=== PATIENT | female | born 1960 | race Caucasian/White ===

== ENCOUNTER 2025-02-08 09:34 | Emergency (ER) | payer OTHER, SELFPAY ==
--- NOTE | ~2025-02-08 | XR_ITS ---
XR ankle RT min 3V 02/08/2025 10:13 Indication: Ankle swelling after injury Procedure: 4 views right ankle Comparison: No prior studies for comparison. Findings: There are laterally displaced bimalleolar fractures of the ankle with mild lateral angulati on. There is lateral subluxation of the talus with respect to the tibia. Talar dome is unremarkable. Moderate soft tissue swelling. No foreign bodies. There are small degenerative calcaneal enthesophyte s. Impression: 1: Bilateral malleolar fracture with lateral displacement and angulation. Reviewed, dictated and finalized at location A. Impression: 1: Bilateral malleolar fracture with lateral displacement and angulation.
--- OUTSIDE RECORDS SUMMARY | 2025-02-08 09:46 | XMS_ITS | Clinical Summary ---
Author Organization [facility] Address [address] [place] [address] Care Team Providers Care Makeup Sales Advisor Name Role Phone Radha Block Unavailable Unavailable Christy Oconnor [facility] Unavailable Yuliya vailable No, Physician Primary Care Provider [phone] Allergies Active Allergy Reactions Criticality Noted Date Comments Cephalexin Other (See comments) Low 08/09/2019 Po only--caused severe N/V. But IV Ancef Gluten Other (See comments) Low 02/05/2018 Celiac Medications cholecalcifero l (VITAMIN D3) 5,000 unit tablet take tablet by oral route every day 0 0 11/06/19 17 Active levothyroxine (SYNTHROID, LEVOTHROID) 75 mcg tabletIndicati ons:hypothyroi dism Take 1 tablet (75 mcg total) by mouth every morning 0 01/28/20 18 Active ZOLMitriptan (ZOMIG) 5 mg tablet Take 1 tablet (5 mg total) by mouth once as needed for migraine MAY REPEAT DOSE IN 2 HOURS IF NEEDED. DO NOT EXCEED MORE THAN 2 DOSES IN 24 HOURS. 6 tablet 11 04/18/20 24 Active metoprolol tartrate (LOPRESSOR) 50 mg immediate release tablet Take 1 tablet (50 mg total) by mouth 2 (two) times a day 180 tablet 3 11/03/19 25 Active galcanezumab-g nlm (Emgality Pen) 120 mg/mL pen injector Inject 240 mg under the skin every 30 (thirty) days for 30 days, THEN 120 mg every 30 (thirty) days. 2 mL 11 01/31/20 25 025 Active ubrogepant (UBRELVY) 100 mg tablet Take 1 tablet (100 mg total) by mouth once as needed for migraine May repeat dose once in 2 hours if no relief. Do not exceed 2 doses in 24 hours. 30 tablet 2 02/02/20 25 026 Active promethazine (PHENERGAN) 12.5 mg tablet TAKE 1 TABLET BY MOUTH EVERY 6 HOURS NEEDED (NAUSEA/MIGR SANTY) 20 tablet 02/03/20 25 Active atogepant (Qulipta) 30 mg tablet Take 30 mg by mouth daily 30 tablet 11 11/07/19 25 025 Discontinued promethazine (PHENERGAN) 12.5 mg tablet TAKE 1 TABLET BY MOUTH EVERY 6 HOURS NEEDED (NAUSEA/MIGR SANTY) 20 tablet 12/31/19 25 025 Discontinued ubrogepant (UBRELVY) 100 mg tablet Take 1 tablet (100 mg total) by mouth once as needed for migraine May repeat dose once in 2 hours if no relief. Do not exceed 2 doses in 24 hours. 10 tablet 01/31/20 25 025 Discontinued(Re order) Hospital, Clinic, or Other Facility Administered Medication Ordered Dose Route Frequency Start Date End Date Status onabotulinumtoxin A (BOTOX) 200 unit injection 200 UnitsIndications:Int ractable chronic migraine without aura and without status migrainosus 200 Units OTHER Once for Clinic-Administer ed Medication 04/24/2025 Active onabotulinumtoxin A (BOTOX) 200 unit injection 200 UnitsIndications:Int ractable chronic migraine without aura and without status migrainosus 200 Units IM Once 01/30/2025 01/30/2025 Ended Active Problems Problem Noted Date Diagnosed Date Arthritis of carpometacarpal (CMC) joint of left thumb 11/28/2021 Overview (11/28/2021): Added automatically from request for surgery [id number] Hallux rigidus of right foot 07/27/2019 Overview (07/27/2019): Added automatically from request for surgery [id number] Arthritis of finger of right hand 01/25/2019 Overview (01/25/2019): Added automatically from request for surgery [id number] Osteoarthritis 03/24/2017 Celiac disease 11/06/2016 Overview (01/02/2017): Celiac disease 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 [place] [address] Batsheva Santana PA Ubrelvaleisha BUENO 01/31/2025 Orders Only [facility] General Neurology [address] [place] [phone] Annette Mckinney Intractable chronic migraine without aura and without status migrainosus (Primary Dx) 01/30/2025 1:30 PM CDT Procedure visit [facility] General Neurology [address] [place] [address] Batsheva Santana PA Intractable chronic migraine without aura and without status migrainosus (Primary Dx) 01/30/2025 Telephone [facility] General Neurology [address] [place] [phone] Batsheva Santana PA Emgality PA from Last 3 Months Immunizations Immunization Administration Dates Next Due Pneumococcal Conjugate PCV 13 05/14/2018 Surgical History Surgery Date Site/Laterality Comments HAND SURGERY 01/2011 & 01/2019 Left left--01/2011 right--01/2019 right hand--> silastic arthrex implant right middle finger INCISION AND DRAINAGE 09/28/2010 - 09/27/2011 Left long finger--treated as osteomylitis prophalactically ROTATOR CUFF REPAIR 06/28/2016 - 07/28/2016 Right FINGER SURGERY 01/26/2011 - 02/25/2011 Bilateral right index finger arthrodesis/synovectomy PIP JOINT FUSION 01/26/2019 - 02/25/2019 Right middle finger Medical History Medical History Date Comments Migraine well controlled with meds. Last migraine-->4-6 weeks ago. Usually has 1/month Seasonal allergies well controll ed with meds Hypothyroidism well controlled with meds Celiac disease 2011 usually manifest s on skin not GI Erosive (osteo)arthritis hands & feet Family History Medical History Relation Name Comments Migraines Maternal Grandmother Family history of migraine headaches - (Added by TW Conv) Stroke Paternal Grandmother Family history of cerebrovascular accident (CVA) - (Added by TW Conv) Ulcerative colitis Son 1 Ulcerativ e colitis; Migraines Son 2 Family history of migraine headaches - (Added by TW Conv) Anesthesia problems Neg Hx Relation Name Status Comments Maternal Grandmother Paternal Grandmother Son 1 Son 2 Social History Tobacco Use Types Packs/Day Years Used Date Smoking Tobacco: Never Smokeless Tobacco: Never Tobacco Cessation:Counseling Given: Not Answered Alcohol Use Standard Drinks/Week Comments No 0 (1 standard drink = 0.6 oz pur e alcohol) AUDIT-C Answer Date Recorded Q1: How often do you have a drink containing alc ohol? Never 12/25/2021 Average Number of Drinks Not on file 022 Frequency of Binge Drinking Not on file 11/28 Comments No Sex and Gender Information Value Date Recorded Sex Assigned at Not on file Legal Sex Female 4:22 AM COMPLIANCE TESTER Gender Identity Female 08/15/2019 6:33 PM COMPLIANCE TESTER Sexual Orientation Straight 01/26/2021 4: 17 PM CDT Occupation Industry Job Start Date Job End Date denied Not on file Not on file Not on file Obstetrics History Last Filed Vital Signs Vital Sign Reading Time Taken Comments Blood Pressure 129/83 01/30/2025 1:08 PM CDT Pulse 62 01/30/2025 1:08 PM CDT Temperature 36.5 C (97.7 F) 01/30/2025 1:08 PM CDT Respiratory Rate 13 12/25/2021 1:40 PM CDT Oxygen Saturation 97% 01/30/2025 1:08 PM CDT Inhaled Oxygen Concentration - - Weight 73.7 kg (162 lb 8 oz) 01/30/2025 1:08 PM CDT Height 165.1 cm (5' 5 ) 11/07/2024 2:36 PM COMPLIANCE TESTER Body Mass Index 27.04 11/07/2024 2:36 PM COMPLIANCE TESTER Plan of Treatment Health Maintenance Due Date Last Done Comments Colon Cancer Screening-Colonoscopy 1960 Depression Screening 1960 Osteoporosis Screening-Bone Density Scan 1960 Hepatitis B Screening 01/17/1976 Breast Cancer Screening-Mammogram 04/02/2018 017 Pneumococcal vaccine 65+ (2 of 2 - PPSV23) 05/14/2019 05/14/2018 Fall Risk Assessment 12/25/2022 12/25/2021 Well Visit 65+ 2023 DTaP/Tdap/Td Vaccine (2 - Td or Tdap) 03/09/2024 03/09/2014 Covid-19 Vaccine (4 - 2023-2 5 season) 2024 10/08/2021, 01/17/2021, 12/24/2020 Influenza Vaccine (Season Ended) 2025 06/19/2021, 06/29/2020, 07/20/2019, Additional history exists Hepatitis C Screening Completed 09/03/2018 Zoster Vaccine Completed 02/08/2019, 11/04/2018 Medical Devices Implanted Type Area Stained Glass Painter Device Identifier Shelf Expiration Date Model / Serial / Lot Small Bone Innovations Pip-20 Biocompatible Interphalangeal Proximal 20 Joint Finger Silastic - [id number] Implanted:Qty: 1 on 02/16/2019 by Guille Paz MD at [facility] Other - see comments Right: Middle Finger [employer] 05/28/2023 PIP-20 / / [id number] Description:Silicone PIP Pro ximal Interphalngeal implant [employer] Ar-1318ft Corkscrew Fiberwire 2.2mm 4mm 17.9mm 2 Needle Wire Foot Ankle 2-0 - Sna - [id number] Implanted:Qty: 1 on 12/25/2021 by Guille Paz MD at [facility] Other - see comments Left: Wrist [employer] [id number] 03/27/2026 AR-1318F T / NA / [id number] Description:Suture anchor [employer] Ar-1318ft Corkscrew Fiberwire 2.2mm 4mm 17.9mm 2 Needle Wire Foot Ankle 2-0 - Sna - [id number] Implanted:Qty: 1 on 12/25/2021 by Guille Paz MD at [facility] Other - see comments Left: Wrist [employer] [id number] 05/28/2025 AR-1318F T / NA / Description:Suture anchor [employer] [id number] Arthroflex [id number] Allograft Thk2.5-3.5mm Graft Soft Tissue - [id number] - [id number] Implanted:Qty: 1 on 08/11/2019 by George Lopez MD at [facility] Right: Foot [employer] 01/29/2022 [id number] / [id number] / [id number] Procedures Procedure Name Priority Date/Time Associated Diagnosis Comments HEPATITIS C ANTIBODY Routine 09/03/2018 1:33 PM COMPLIANCE TESTER Psoriatic arthritis (HCC) High risk medication use MAMMOGRAPHY, TOMOGRAPHY, BILATERAL Routine 04/02/2017 1:50 PM CDT from Last 3 Months or Most Recently Relevant to Health Maintenance Results * Hepatitis C antibody (09/03/2018 1:33 PM COMPLIANCE TESTER) Hep C Ab NON-REACTI VE NON-REACTI VE [facility] [place] SIGNAL TO CUT-OFF 0.01 <1.00 [facility] [place] Blood specimen (specimen) 09/03/2018 1:33 PM COMPLIANCE TESTER 09/03/2018 1:34 PM COMPLIANCE TESTER Narrative [facility] - 09/06/2018 2:45 PM COMPLIANCE TESTER FASTING:NO FASTING: NO Resulting Agency Comment Performing Organization Information: Site ID: [id number] Name: [facility] Address: [address] [address] Director: Alex Bojorquez D.O., MPH us Rell Aguilar MD PhD LAB MICROBIOLOGY - GENER AL ORDERABLES Final Result [facility] - [facility] * MAMMOGRAPHY, TOMOGRAPHY, BILATERAL (04/02/2017 1:50 PM CDT) Anatomical Region Laterality Modality Bilateral Mammography 04/02/2017 1:50 PM CDT Narrative 04/02/2017 1:50 PM CDT Daina RAMOS M.D. FINAL REPORT The radiology attending physician has personally reviewed this study, and has reviewed and/or edited this written report and agrees with it. ACC# Date Time Exam [id number] Apr 02, 2017 08:50:00 [facility] [address] Diag Mamm, inc CAD, bilat Technologist(s): Jamee Sabillon; ; [id number] Apr 02, 2017 08:50:00 [facility] [address] Dig Breast Mayur Thomas Technologist(s): Jamee Sabillon; ; [id number] Apr 02, 2017 09:17:00 [facility] [id number] Axillary Breast Ultrasound R ACC# Date Time Exam [id number] Apr 02, 2017 08:50:00 [facility] [address] Diag Mamm, inc CAD, bilat Technologist(s): Jamee Sabillon; ; [id number] Apr 02, 2017 08:50:00 [facility] [address] Dig Breast Mayur Thomas Technologist(s): Jamee Sabillon; ; [id number] Apr 02, 2017 09:17:00 [facility] [address] Axillary Breast Ultrasound R EXAMINATION: BILATERAL FULL FIELD DIGITAL DIAGNOSTIC MAMMOGRAM WITH CAD AND DIGITAL BREAST TOMOSYNTHESIS; RIGHT AXILLARY SONOGRAM HISTORY: 57-year-old woman with recent abnormal screening mammogram at [facility] on 03/18/2017. The patient also reports right axillary thickening for approximately 3 years. TECHNIQUE: Full field digital craniocaudal and mediolateral oblique views of the breast(s) were obtained. Computer Aided Detection was performed. Digital breast tomosynthesis was performed. COMPARISON: 03/18/2017, 02/14/2015, 01/11/2014, 04/25/2010. BREAST PARENCHYMAL COMPOSITION: The breasts are heterogeneously dense, which may obscure small masses. MAMMOGRAM FINDINGS: No suspicious abnormality is confirmed in the area of concern on recent screening mammogram. No new suspicious abnormality is seen within either breast on mammogram. RIGHT AXILLA SONOGRAM: Targeted sonogram of the right axilla was performed. There is no suspicious sonographic finding in the area of palpable concern in the right axilla. Normal right axillary lymph nodes are visualized. IMPRESSION: 1. No suspicious sonographic finding in the area of clinical concern in the right axilla. OVERALL FINAL ASSESSMENT: BI-RADS Category 1: Negative. Requested By: Judy Barakat M.D. Dictated By: MARGARITA CHAVEZ M.D. on Apr 02 2017 9:26A This document has been electronically signed by: ANYA BAIRD M.D. on Apr 02 2017 9:37A [id number] RAMOS M.D. FINAL REPORT The radiology attending physician has personally reviewed this study, and has reviewed and/or edited this written report and agrees with it. Attending: JUDY BARAKAT Requesting: Judy Barakat Requesting Fax: Attending Fax: Attending ID: [id number] Requesting ID: [id number] Report To 1 ID: [id number] Report To 1 Name: , Report To 1 FAX: NextGen Order #: Procedure Note Miscellaneous, Not In File - 07/18/2017 Daina RAMOS M.D. FINAL REPORT The radiology attending physician has personally reviewed this study, and has reviewed and/or edited this written report and agrees with it. ACC# Date Time Exam [id number] Apr 02, 2017 08:50:00 [facility] [id number] Diag Mamm, inc CAD, bilat Technologist(s): Jamee Sabillon; ; [id number] Apr 02, 2017 08:50:00 [facility] [address] Dig Breast Mayur Thomas Technologist(s): Jamee Sabillon; ; [id number] Apr 02, 2017 09:17:00 [facility] [address] Axillary Breast Ultrasound R ACC# Date Time Exam [id number] Apr 02, 2017 08:50:00 [facility] [address] Diag Mamm, inc CAD, bilat Technologist(s): Jamee Sabillon; ; [id number] Apr 02, 2017 08:50:00 [facility] [address] Dig Breast Mayur Thomas Technologist(s): Jamee Sabillon; ; [id number] Apr 02, 2017 09:17:00 [facility] [address] Axillary Breast Ultrasound R EXAMINATION: BILATERAL FULL FIELD DIGITAL DIAGNOSTIC MAMMOGRAM WITH CAD AND DIGITAL BREAST TOMOSYNTHESIS; RIGHT AXILLARY SONOGRAM HISTORY: 57-year-old woman with recent abnormal screening mammogram at [facility] on 03/18/2017. The patient also reports right axillary thickening for approximately 3 years. TECHNIQUE: Full field digital craniocaudal and mediolateral oblique views of the breast(s) were obtained. Computer Aided Detection was performed. Digital breast tomosynthesis was performed. COMPARISON: 03/18/2017, 02/14/2015, 01/11/2014, 04/25/2010. BREAST PARENCHYMAL COMPOSITION: The breasts are heterogeneously dense, which may obscure small masses. MAMMOGRAM FINDINGS: No suspicious abnormality is confirmed in the area of concern on recent screening mammogram. No new suspicious abnormality is seen within either breast on mammogram. RIGHT AXILLA SONOGRAM: Targeted sonogram of the right axilla was performed. There is no suspicious sonographic finding in the area of palpable concern in the right axilla. Normal right axillary lymph nodes are visualized. IMPRESSION: 1. No suspicious sonographic finding in the area of clinical concern in the right axilla. OVERALL FINAL ASSESSMENT: BI-RADS Category 1: Negative. Requested By: Judy Barakat M.D. Dictated By: MARGARITA CHAVEZ M.D. on Apr 02 2017 9:26A This document has been electronically signed by: ANYA BAIRD M.D. on Apr 02 2017 9:37A [id number] RAMOS M.D. FINAL REPORT The radiology attending physician has personally reviewed this study, and has reviewed and/or edited this written report and agrees with it. Attending: JUDY BARAKAT Requesting: Judy Barakat Requesting Fax: Attending Fax: Attending ID: [id number] Requesting ID: [id number] Report To 1 ID: [id number] Report To 1 Name: , Report To 1 FAX: NextGen Order #: [id number] Judy Barakat MD IMG MAMMO PROCEDURES Edit ed Result - Final from Last 3 Months or Most Recently Relevant to Health Maintenance Insurance [facility] CHOICE PLUS [facility] ADVANTAGE CHOICE PPO * Guarantor: [facility] Account Type Relation to Patient Date of Phone Billing Address Research Care Teams Makeup Sales Advisor Relationship Specialty Start Date End Date No, Physician PCP - General 04/22/22 Radha Block Occupational Therapist Occupational Therapy 03/02/18 Christy Oconnor, operations supervisor 2nd shift 05/27/18
--- OUTSIDE RECORDS SUMMARY | 2025-02-08 09:46 | XMS_ITS | Referral Summary ---
Author Organization [facility] Address [address] [place] [address] Care Team Providers Care Seed Production Field Supervisor Name Role Phone Radha Block Unavailable Unavailable Christy Oconnor [facility] Unavailable Yuliya vailable No, Physician Primary Care Provider [phone] Encounters Date Type Department Care Team Description 02/01/2025 Telephone [facility] General Neurology [address] [place] [address] Batsheva Santana PA Ubrelvy PA 01/31/2025 Orders Only [facility] General Neurology [address] [place] [address] Annette Mckinney Intractable chronic migraine without aura and without status migrainosus (Primary Dx) 01/30/2025 Telephone [facility] General Neurology [address] [place] [address] Batsheva Santana PA Emgality PA 01/30/2025 1:30 PM CDT Procedure visit [facility] General Neurology [address] [place] [address] Batsheva Santana PA Intractable chronic migraine without aura and without status migrainosus (Primary Dx) from Last 3 Months Allergies Active Allergy Reactions Criticality Noted Date [...] mg every 30 (thirty) days. 2 mL 01/31/20 25 025 Active ubrogepant (UBRELVY) 100 [...] (11/28/2021): Added automatically from request for surgery [id number] Hallux rigidus of right foot 07/27/2019 Overview (07/27/2019): Added automatically from request for surgery [id number] Arthritis of finger of right hand 01/25/2019 Overview (01/25/2019): Added automatically from request for surgery [id number] Osteoarthritis 03/24/2017 Celiac disease 11/06/2016 Overview (01/02/2017): Celiac disease Dermatitis herpetiformis 11/06/2016 Overview (01/02/2017): Dermatitis herpetiformis Intractable chronic migraine without aura and without status migrainosus 11/06/2016 Overview (01/02/2017): Migraines Hypothyroidism 11/06/2016 Overview (01/02/2017): Hypothyroidism Resolved Problems Problem Noted Date Diagnosed Date Resolved Date High risk medication use 05/13/201812/2021 Psoriatic arthritis 02/05/2018 08/02/20 19 Immunizations Immunization Administration Dates Next Due Pneumococcal Conjugate PCV 13 05/14/2018 Social History Tobacco Use Types Packs/Day Years [...] on file Legal Sex Female 4:22 AM VICE PRESIDENT OF CUSTOMER SERVICE Gender Identity Female 08/15/2019 6:33 PM VICE PRESIDENT OF CUSTOMER SERVICE Sexual Orientation Straight 01/26/2021 4: 17 PM CDT Occupation Industry Job Start Date Job End Date denied Not on file Not on file Not on file Last Filed Vital Signs Vital Sign Reading [...] cm (5' 5 ) 11/07/2024 2:36 PM VICE PRESIDENT OF CUSTOMER SERVICE Body Mass Index 27.04 11/07/2024 2:36 PM VICE PRESIDENT OF CUSTOMER SERVICE Plan of Treatment Not on file Medical Devices Implanted Type Area Escrow Processor Device Identifier Shelf Expiration Date Model / Serial / Lot Small Bone Innovations Pip-20 Biocompatible Interphalangeal Proximal 20 Joint Finger Silastic - [id number] Implanted:Qty: 1 on 02/16/2019 by Guille Paz MD at [facility] Other - see comments Right: Middle Finger [employer] 05/28/2023 PIP-20 / / [id number] Description:Silicone PIP Pro ximal Interphalngeal implant [employer] Ar-1318ft Corkscrew Fiberwire 2.2mm 4mm 17.9mm 2 Needle Wire Foot Ankle 2-0 - Sna - [id number] Implanted:Qty: 1 on 12/25/2021 by Guille Paz MD at [facility] Other - see comments Left: Wrist [employer] [id number] 03/27/2026 AR-1318F T / NA / [id number] Description:Suture anchor [employer] Ar-1318ft Corkscrew Fiberwire 2.2mm 4mm 17.9mm 2 Needle Wire Foot Ankle 2-0 - Sna - [id number] Implanted:Qty: 1 on 12/25/2021 by Guille Paz MD at [facility] Other - see comments Left: Wrist [employer] [id number] 05/28/2025 AR-1318F T / NA / Description:Suture anchor Lif[employer]et [id number] Arthroflex [id number] Allograft Thk2.5-3.5mm Graft Soft Tissue - [id number] - [id number] Implanted:Qty: 1 on 08/11/2019 by George Lopez MD at [facility] Right: Foot [employer]et 01/29/2022 [id number] / [id number] / [id number] Procedures Procedure Name Priority Date/Time Associated Diagnosis Comments HEPATITIS C ANTIBODY Routine 09/03/2018 1:33 PM VICE PRESIDENT OF CUSTOMER SERVICE Psoriatic arthritis (HCC) High risk medication use MAMMOGRAPHY, TOMOGRAPHY, BILATERAL Routine 04/02/2017 1:50 PM CDT from Last 3 Months or Most Recently Relevant to Health Maintenance Results * Hepatitis C antibody (09/03/2018 1:33 PM VICE PRESIDENT OF CUSTOMER SERVICE) Hep C Ab NON-REACTI VE NON-REACTI VE [facility] [place] SIGNAL TO CUT-OFF 0.01 <1.00 [facility] [place] Blood specimen (specimen) 09/03/2018 1:33 PM VICE PRESIDENT OF CUSTOMER SERVICE 09/03/2018 1:34 PM VICE PRESIDENT OF CUSTOMER SERVICE Narrative [facility] - 09/06/2018 2:45 PM VICE PRESIDENT OF CUSTOMER SERVICE FASTING:NO FASTING: NO Resulting Agency Comment Performing Organization Information: Site ID: [place] Name: Brittnee Hernandez Address: [address] [address] Director: Alex Bojorquez D.O., MPH us Rell Aguilar MD PhD LAB MICROBIOLOGY - GENER AL ORDERABLES Final Result [facility] - [place] * MAMMOGRAPHY, TOMOGRAPHY, BILATERAL (04/02/2017 1:50 PM CDT) Anatomical Region Laterality Modality Bilateral Mammography 04/02/2017 1:50 PM CDT Narrative 04/02/2017 1:50 PM CDT ANYA BAIRD M.D. MARGARITA CHAVEZ M.D. FINAL REPORT The radiology attending physician has personally reviewed this study, and has reviewed and/or edited this written report and agrees with it. ACC# Date Time Exam [id number] Apr 02, 2017 08:50:00 [facility] [address]34 Diag Mamm, inc CAD, bilat Technologist(s): Jamee Sabillon; ; [id number] Apr 02, 2017 08:50:00 [facility] [address]902 Dig Breast Mayur Thomas Technologist(s): Jamee Sabillon; ; [id number] Apr 02, 2017 09:17:00 [facility] [address]2981 Axillary Breast Ultrasound R ACC# Date Time Exam [id number] Apr 02, 2017 08:50:00 [facility] 40926 Diag Mamm, inc CAD, bilat Technologist(s): Jamee Sabillon; ; [id number] Apr 02, 2017 08:50:00 [facility] [address]222 Dig Breast Mayur Thomas Technologist(s): Jamee Sabillon; ; [id number] Apr 02, 2017 09:17:00 [facility] 52485 Axillary Breast Ultrasound R EXAMINATION: BILATERAL FULL FIELD DIGITAL DIAGNOSTIC MAMMOGRAM WITH CAD AND DIGITAL BREAST TOMOSYNTHESIS; RIGHT AXILLARY SONOGRAM HISTORY: 57-year-old woman with recent abnormal screening mammogram at [facility] on 03/18/2017. The patient also reports right [...] BAIRD M.D. on Apr 02 2017 9:37A [id number] RAMOS M.D. FINAL REPORT The radiology attending physician has personally reviewed this study, and has reviewed and/or edited this written report and agrees with it. Attending: JUDY BARAKAT Requesting: Judy Barakat Requesting Fax: Attending Fax: Attending ID: [id number] Requesting ID: [id number] Report To 1 ID: [id number] Report To 1 Name: , Report To 1 FAX: NextGen Order #: Procedure Note Miscellaneous, Not In File - 07/18/2017 Daina RAMOS M.D. FINAL REPORT The radiology attending physician has personally reviewed this study, and has reviewed and/or edited this written report and agrees with it. ACC# Date Time Exam [id number] Apr 02, 2017 08:50:00 [facility] [address]2275 Diag Mamm, inc CAD, bilat Technologist(s): Jamee Sabillon; ; [id number] Apr 02, 2017 08:50:00 [facility] [address]5500 Dig Breast Mayur Htomas Technologist(s): Jamee Sabillon; ; [id number] Apr 02, 2017 09:17:00 [facility] [address]1608 Axillary Breast Ultrasound R ACC# Date Time Exam [id number] Apr 02, 2017 08:50:00 [facility] [address]878 Diag Mamm, inc CAD, bilat Technologist(s): Jamee Sabillon; ; [id number] Apr 02, 2017 08:50:00 [facility] [address]453 Dig Breast Mayur Thomas Technologist(s): Jamee Sabillon; ; [id number] Apr 02, 2017 09:17:00 [facility] 22089 Axillary Breast Ultrasound R EXAMINATION: BILATERAL FULL FIELD DIGITAL DIAGNOSTIC MAMMOGRAM WITH CAD AND DIGITAL BREAST TOMOSYNTHESIS; RIGHT AXILLARY SONOGRAM HISTORY: 57-year-old woman with recent abnormal screening mammogram at [facility] on 03/18/2017. The patient also reports right [...] BAIRD M.D. on Apr 02 2017 9:37A [id number] RAMOS M.D. FINAL REPORT The radiology attending physician has personally reviewed this study, and has reviewed and/or edited this written report and agrees with it. Attending: JUDY BARAKAT Requesting: Judy Barakat Requesting Fax: Attending Fax: Attending ID: [id number] Requesting ID: [id number] Report To 1 ID: [id number] Report To 1 Name: , Report To 1 FAX: NextGen Order #: us Judy Barakat MD IMG MAMMO PROCEDURES Edit ed Result - Final from Last 3 Months or Most Recently Relevant to Health Maintenance Insurance [facility] H[facility]/PPO Address: [address] [address] [place] [address] [facility] ADVANTAGE CHOICE PPO * Guarantor: [facility] Account Type Relation to Patient Date of Phone Billing Address Research Care Teams Seed Production Field Supervisor Relationship Specialty Start Date End Date No, Physician PCP - General 04/22/22 Radha Block Occupational Therapist Occupational Therapy 03/02/18 Christy Oconnor, Kevan 05/27/18
--- OUTSIDE RECORDS SUMMARY | 2025-02-08 09:46 | XMS_ITS | Clinical Summary ---
Author Organization [facility] Address [address] [place] [address] Care Team Providers Care Fruit Express Agent Name Role Phone Erasmo Whitley MD Primary Care Provider [phone] Allergies Active Allergy Reactions Criticality Noted Date Comments Unclassified Drug Swelling Low 03/18/2013 Medications metoprolol tartrate (LOPRESSOR) 50 mg Oral tablet Take 50 mg by mouth 2 times daily. Active dapsone (ACZONE) 100 mg Oral tablet Take 100 mg by mouth daily. Active topiramate (TOPAMAX) 100 mg Oral tablet Take 100 mg by mouth 2 times daily. Active levothyroxine 50 mcg Oral tablet Take 50 mcg by mouth daily family practice doctor. Active multivitamin (DAILY-CHON) Oral tablet Take 1 Tab by mouth daily. Active OTHER b 12 Active Estradiol-Noreth indrone Acet (ACTIVELLA) 0.5-0.1 mg Oral Tab Take by mouth. Active BIOTIN ORAL Take by mouth. Active Family History Medical History Relation Name Comments Colon Cancer Neg Hx Social History Tobacco Use Types Packs/Day Years Used Date Smoking Tobacco: Never Alcohol Use Standard Drinks/Week Comments No 0 (1 standard drink = 0.6 oz pur e alcohol) Comments Unknown Sex and Gender Information Value Date Recorded Sex Assigned at Not on file Legal Sex Female 10:55 AM CDT Gender Identity Not on file Sexual Orientation Not on file Last Filed Vital Signs Vital Sign Reading Time Taken Comments Blood Pressure 104/47 03/22/2013 2:27 PM CDT Pulse 64 03/22/2013 2:27 PM CDT Temperature 36.3 C (97.4 F) 03/22/2013 2:08 PM CDT Respiratory Rate 18 03/22/2013 2:27 PM CDT Oxygen Saturation 98% 03/22/2013 2:27 PM CDT Inhaled Oxygen Concentration - - Weight 53.1 kg (117 lb 2 oz) 03/22/2013 12:51 PM CDT Height 161.3 cm (5' 3.5 ) 03/22/2013 12:51 PM CD T Body Mass Index 20.42 03/22/2013 12:51 PM CDT Plan of Treatment Health Maintenance Due Date Last Done Comments DTAP/TDAP/TD VACCINES (1 - Tdap) 1977 BREAST CANCER SCREENING 1998 FIT-DNA Q 3 years 2003 FIT/FOBT Q 1 year 2003 Flex Sig/CT Colonography Q 5 years 2003 PNEUMOCOCCAL VACCINE 50+ YEARS (1 of 1 - PCV) 01/17/20 08 ZOSTER VACCINE (1 of 2) 01/17/2008 OSTEOPOROSIS SCREENING 2023 COLORECTAL SCREENING 03/22/2023 03/22/2013 Colorectal Cancer Screening 03/22/2023 INFLUENZA VACCINE (#1) 2024 RSV VACCINE (60+ or ) (1 - 1-dose 75+ series) 2033 Insurance [facility] [id number] Advance Directives For more information, please contact: [phone] * Full Code (Latest Code Status on File) Date Activated Date Inactivated Comments 03/22/2013 12:51 PM 03/22/2013 5:19 PM Care Teams Fruit Express Agent Relationship Specialty Start Date End Date Erasmo Whitley MD [address] [place] [address] PCP - General Family Practice 03/22/13
--- OUTSIDE RECORDS SUMMARY | 2025-02-08 09:46 | XMS_ITS | Clinical Summary ---
Author Organization [facility] Address [address] [place] [address] Care Team Providers Care Shearer Operator Name Role Phone Kevin Morton MD Primary Care Provider [phone] Social History Tobacco Use Types Packs/Day Years Used Date Smoking Tobacco: Never Assessed Comments Unknown Sex and Gender Information Value Date Recorded Sex Assigned at Not on file Legal Sex Female 5:02 PM CDT Gender Identity Not on file Sexual Orientation Not on file Last Filed Vital Signs Vital Sign Reading Time Taken Comments Blood Pressure 115/77 12/05/2016 11:32 AM EMAIL CAMPAIGN SPECIALIST Pulse 71 12/05/2016 11:32 AM EMAIL CAMPAIGN SPECIALIST Temperature - - Respiratory Rate - - Oxygen Saturation - - Inhaled Oxygen Concentration - - Weight 63.5 kg (140 lb) 12/05/2016 11:32 AM EMAIL CAMPAIGN SPECIALIST Height 165.1 cm (5' 5 ) 12/10/2015 10:23 AM CDT Body Mass Index 23.3 12/10/2015 10:23 AM CDT Plan of Treatment Health Maintenance Due Date Last Done Comments Colorectal Cancer Screening Colonoscopy (10 Years) 1958 Hepatitis C 01/17/1976 DTaP, Tdap and Td Vaccines ( 1 - Tdap) 1977 Mammogram Screening 1998 Pneumococcal Vaccine: 50+ Ye ars (1 of 1 - PCV) 01/17/2008 Zoster Vaccines (1 of 2) 01/17/2008 Dexa Scan (General) 2023 COVID-19 Vaccine ( - 2023-2 5 season) 2024 RSV Immunization or 60+ Years (1 - 1-dose 75+ series) 2033 Meningococcal B Vaccine Aged Out No l onger eligible based on patient's age to complete this topic Meningococcal Vaccine Aged Out No kelvin dia eligible based on patient's age to complete this topic RSV Immunizations Under 20 Months Aged Out No longer eligible based on patient's age to complete this topic Care Teams Shearer Operator Relationship Specialty Start Date End Date Kevin Morton MD PCP - General 12/10/15
--- OUTSIDE RECORDS SUMMARY | 2025-02-08 09:46 | XMS_ITS | Encounter Summary ---
Author Organization [facility] Address [address] [place] [address] Phone Care Team Providers Care Market Superintendent Name Role Phone Kevin Morton MD Primary Care Provider [phone] Radha Block Unavailable Unavailable Christy Oconnor [facility] Unavailable Yuliya vailable Erasmo Whitley MD Primary Care Provider + [phone] Kevin Morton MD Primary Care Provider [phone] Erasmo Whitley MD Primary Care Provider + [phone] No, Physician Primary Care Provider [phone] Encounter Details Date Type Department Care Team (Late st Contact Info) Description 09/08/2018 Orders Only [facility] Scanning, Provider Social History Tobacco Use Types Packs/Day Years Used Date Smoking Tobacco: Never Smokeless Tobacco: Never Alcohol Use Standard Drinks/Week Comments No 0 (1 standard drink = 0.6 oz pur e alcohol) Comments Unknown Sex and Gender Information Value Date Recorded Sex Assigned at Not on file Legal Sex Female 4:22 AM THERAPEUTIC CASE MANAGER Gender Identity Female 08/15/2019 6:33 PM THERAPEUTIC CASE MANAGER Sexual Orientation Straight 01/26/2021 4: 17 PM CDT Occupation Industry Job Start Date Job End Date denied Not on file Not on file Not on file documented as of this encounter Plan of Treatment Not on file documented as of this encounter Procedures Procedure Name Priority Date/Time Associated Diagnosis Comments SCAN - RADIOLOGY/IMAGING 09/08/2018 documented in this encounter Results * SCAN - RADIOLOGY/IMAGING (09/08/2018) Anatomical Region Laterality Modality Other us Provider Scanning Final Result documented in this encounter Visit Diagnoses Not on filedocumented in this encounter Care Teams Market Superintendent Relationship Specialty Start Date End Date Kevin Morton MD PCP - General 10/05/17 02/09/19 Erasmo Whitley MD PCP - General 02/10/19 02/15/19 Kevin Morton MD PCP - General 02/16/19 03/14/19 Erasmo Whitley MD PCP - General Family Medicine 03/15/19 02/11/22 No, Physician PCP - General 04/22/22 Radha Block Occupational Therapist Occupational Therapy 03/02/18 Christy Oconnor, Kevan 05/27/18 documented as of this encounter
[2025-02-08 09:47] VITALS: BP 113/73; PULSE 84; RESP 18; TEMP 36.2; O2SAT 99
--- NOTE | 2025-02-08 09:56 | ED.LOWEXIN ---
HPI - Extremity Injury (Lower) General Chief Complaint: Extremity Injury, Lower Stated Complaint: ankle injury Time Seen by Provider: 02/08/25 09:56 Source: patient, family, RN notes reviewed and old records reviewed Mode of arrival: ambulatory (on crutches) Limitations: no limitations History of Present Illness HPI Narrative: 65 year old female presents to [facility] care with complaints of pain, bruising and swelling to her right ankle after going on a walk yesterday morning and slipping on a storm drain that had kramer growing on it and twisted her ankle. Patient reports that she did not actually fall but twisted the right ankle, causing abrasion to the inner aspect of ankle where she hit it on storm drain Patient has noted swelling and bruising to bilateral aspects of her right ankle with ecchymosis. pedal pulse strong. Patient reports that she had taken Advil, elevated and iced her right ankle using crutches with non weight bearing to right foot for any ambulation. MD complaint: ankle injury (right ) Onset (ago): day(s) (yesterday) Injury: Right: ankle (right ankle medial and lateral) Type of Injury: other (twisted right ankle and hit inner aspect of her ankle on storm drain) Place: street/outdoors Severity: moderate Exacerbating factors: weight bearing and movement Associated symptoms: swelling, unable to bear weight and other (ecchymosis) Treatments prior to arrival: cold therapy, NSAIDS and other (elevation) Related Data Home Medications Medication Instructions Recorded Confirmed Last Taken Type zolmitriptan 5 mg tablet (Zomig) See Rx Instructions PO .COMPLEX 02/21/20 09/01/22 Unknown History galcanezumab-gnlm 120 mg/mL mg subcut 02/08/25 Unknown History subcutaneous pen injector (Emgality Pen) promethazine 12.5 mg tablet mg 02/08/25 Unknown History Allergies Allergy/AdvReac Type Severity Reaction Status Date / Time gluten AdvReac Severe Rash Verified 02/08/25 09:55 cephalexin AdvReac Intermediate Vomiting Verified 02/08/25 09:55 Review of Systems Review of Systems: CONSTITUTIONAL: Denies fever, chills, or sweats. EYES: Denies visual changes, redness, or discharge. ENT: Denies rhinorrhea, congestion, sore throat, or otalgia. CARDIOVASCULAR: Denies chest pain, palpitations, or edema. RESPIRATORY: Denies cough or dyspnea. GASTROINTESTINAL: Denies abdominal pain, nausea, vomiting, or diarrhea. GENITOURINARY: Denies dysuria or hematuria. SKIN: Denies rash or itching. MUSCULOSKELETAL: Denies back pain,Reports pain to her right inner and outer ankle joint with swelling and bruising from injury, or myalgia. NEUROLOGIC: Denies headache, numbness, or weakness. PSYCHIATRIC: Denies anxiety or depression. All systems reviewed & are unremarkable except as noted in HPI and below PMFSH Past Medical History Medical History Celiac disease Hypothyroidism, unspecified Migraine BMI 26.0-26.9,adult Bunion of great toe Surgical History Surgical History H/O toe surgery right great toe H/O hand surgery bilateral Family History Family History Father No problems noted. Grandparent Diabetes mellitus Mother Arthritis Sibling No problems noted. Social History Social History Smoking status: Never smoker Second hand tobacco smoke exposure: No Alcohol intake: never Substance use: never Substance use type: does not use Lack of Transportation: No Lack of Food: Never True Current Housing: I Have Housing Concerned About Future Housing: No Difficulty Paying Gas/Electric Bills: No Difficulty Paying for Meds: No Currently Unemployed: No Education: Master's Degree or Higher Living arrangements: with family Occupation/Education: occupation Additional occupation/education comments: Operating RN Gender identity (if verbalized by the patient): Female Comments At time of signature, agree with nursing past medical, surgical, social and family history. There is no relevant family history pertinent to the presenting complaint Exam Narrative: GENERAL: Well-appearing, well-nourished, and in no some acute distress related to right ankle injury. HEAD: Normocephalic, atraumatic. EYES: PERRLA and EOMI. ENT: Nares clear, no rhinorrhea or epistaxis. Mucous membranes moist. NECK: Supple.no lymphadenopathy CHEST: Clear to auscultation. No respiratory distress.SAO2 99% on room air HEART: Regular rate and rhythm. No murmur heard. Normal peripheral pulses. ABDOMEN: Soft, nontender, nondistended, normal active bowel sounds. EXTREMITIES: Normal range of motion. No edema.Exception noted to the right ankle with medial and lateral swelling and bruising from injury. Patient can not tolerate any weight bearing with increased pain with attempted movement of right ankle, strong pedal pulse present, no posterior heel pain noted. SKIN: Warm, dry, no rash. NEURO: No focal deficits. Alert and oriented x3. Course Course Emergency Course: Patient is aware of diagnosis, understands and agrees to treatment plan. Anticipatory guidance given. Patient agrees to follow-up as directed and is aware of reasons to seek care at the emergency department. Portions of this record may have been created with voice recognition software Level of Care: Express Care Visit Vital Signs Vital signs: Vital Signs Temperature 36.2 C L 02/08/25 09:47 Pulse Rate 84 02/08/25 09:47 Respiratory Rate 18 02/08/25 09:47 Blood Pressure 113/73 02/08/25 09:47 Pulse Oximetry 99 02/08/25 09:47 Oxygen Delivery Room Air 02/08/25 09:47 Temperature 36.2 C L 02/08/25 09:47 Pulse Rate 84 02/08/25 09:47 Respiratory Rate 18 02/08/25 09:47 Blood Pressure 113/73 02/08/25 09:47 Pulse Oximetry 99 02/08/25 09:47 Oxygen Delivery Room Air 02/08/25 09:47 Reviewed Procedures Orthopedic Splinting/Casting ankle: Splinting/Casting Date: 02/08/25 Splinting/Casting Time: 10:45 Side: right Lower Extremity Injury Location: ankle Lower Extremity Immobilizer: posterior splint Splint: customized in ED OCL: short leg Pre-Procedure Neuro Vascular Exam: normal Post-Procedure Neuro Vascular Exam: normal Other Orthopedic Equipment: other (patient has own crutches from home demonstrates non weight bearing to right foot ) Additional Comments: tolerated well MDM - Extremity Injury (Lower) MDM Narrative Medical decision making narrative: Patient given x-ray disc with film on it and report and films pushed to [facility] Pacs system Differential Diagnosis Differential diagnosis: Likely ankle sprain and strain, ankle fracture and other (Bimalleolar fracture right ankle) Medical Records Attestation: I reviewed the patient's medical records. Imaging Data Attestation: I personally reviewed and interpreted this imaging study as follows: My impression: Bimalleolar right ankle fracture with lateral displacement and angulation soft tissue swelling Radiologist's impression: [facility] [address] [place] [id number] XRay Report Signed Patient: Anastasiya Max : 1960 MR#: [id number] Age: 65 Acct:[id number] Loc: [facility] ADM Date: 02/08/25Attending Dr: Ordering Physician: Rhianna Mathews APRN Date of Service: 02/08/25 Procedure(s): XR ankle RT min 3V Accession Number(s): [id number] cc: POURER BULL LADLE PHYSICIAN; Rhianna Mathews APRN~ XR ankle RT min 3V 02/08/2025 10:13 Indication: Ankle swelling after injury Procedure: 4 views right ankle Comparison: No prior studies for comparison. Findings: There are laterally displaced bimalleolar fractures of the ankle with mild lateral angulation. There is lateral subluxation of the talus with respect to the tibia. Talar dome is unremarkable. Moderate soft tissue swelling. No foreign bodies. There are small degenerative calcaneal enthesophytes. Impression: 1: Bilateral malleolar fracture with lateral displacement and angulation. Reviewed, dictated and finalized at location A. Please be advised this is a medical document. It is intended for [id number] communication. It is written in medical language and may contain unfamiliar abbreviations or verbiage. Medical documents are intended to carry relevant information, facts as evident, and the clinical opinion of the practitioner at the time of the encounter. This report may have been done utilizing a voice recognition system. Attempts have been made to correct errors. However, there may be uncorrected grammatical, spelling, and recognition errors present. The file time of this note does not necessarily represent the time of service. Dictated By: Adelso Schuler MD 02/08/25 1018 Signed By: <Electronically signed by Adelso Schuler MD in OV> Critical Care Time Critical Care Time Critical Care Time: No Discharge Plan Discharge Clinical Impression: Bimalleolar fracture of right ankle Qualifiers: Encounter type: initial encounter Fracture type: closed Qualified Code(s): S82.841A - Displaced bimalleolar fracture of right lower leg, initial encounter for closed fracture Patient Disposition: Home Condition: Stable Instructions: Ankle Fracture (ED) Additional Instructions: orthopedic splint as directed until seen by orthopedic Crutches as directed nonweightbearing right ankle Tylenol for lesser pain Ibuprofen regularly for the next 2-3 days for the inflammation Use the medication as provided for severe pain--caution each tablet contains 325 mg of Tylenol--the maximum dose of Tylenol is 4000 mg in 24 hours. 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 Follow-up with PCP in 7-10 days or sooner if needed x-ray disc and report given to patient Patient Language: Moldovan Prescriptions: New hydrocodone-acetaminophen 7.5-325 mg tablet 1 tablet PO Q6H PRN (Reason: pain) Qty: 10 0RF No Action promethazine 12.5 mg tablet Emgality Pen 120 mg/mL pen injector SUBCUT zolmitriptan [Zomig] 5 mg tablet See Rx Instructions PO .COMPLEX Rx Instructions: take 1 tab at onset of headache; if no relief, may repeat 1 tab after at least 2 hrs; max = 2 tabs/24 hrs PO metoprolol tartrate 50 mg tablet See Rx Instructions .ROUTE .COMPLEX Qty: 180 3RF Dose Instruction: TAKE 1 TABLET BY MOUTH TWICE DAILY Rx Instructions: TAKE 1 TABLET BY MOUTH TWICE DAILY managed by neurologist levothyroxine 75 mcg tablet See Rx Instructions .ROUTE .COMPLEX Qty: 90 3RF Dose Instruction: TAKE 1 TABLET BY MOUTH DAILY Rx Instructions: TAKE 1 TABLET BY MOUTH DAILY Follow-up/Referrals: PHYSICIAN,POURER BULL LADLE [Primary Care Provider] - Time of Disposition: 10:52 Quality Sharon Coma Scale Eyes: Open Verbal: Oriented and Alert Motor: Follows Commands Eldred Coma Total Score: 15
== END 2025-02-08 11:06 | disposition home or self-care (01) ==
PROVIDERS: Emergency Provider Registered Nurse; Referring Provider Emergency Medicine
DX: S82.841A Displaced bimalleolar fracture of right lower leg, initial encounter for closed fracture (principal); W18.49XA Other slipping, tripping and stumbling without falling, initial encounter; K90.0 Celiac disease; E03.9 Hypothyroidism, unspecified
CPT/HCPCS: 29515; 73610; 99214; G0463

== ENCOUNTER 2025-08-07 12:24 | Outpatient (CLI) | payer OTHER, SELFPAY ==
--- NOTE | ~2025-08-07 | DEXA_ITS ---
Bone Density Report Name: ESPERANZA JAMES Age: 65 Sex: Female Ethnicity: White Date of : 1960 Indication: postmenopausal; screening for osteoporosis; prior fracture; Referring Provider: Cherie, Iqra Henry Study: Bone densitometry was performed. Exam Date: August 07, 2025 Accession number: [id number] Bone Density: Region BMD T-score Z-score Classification AP Spine(L1-L4) 0.819 -2.1 -0.1 Osteopenia Femoral Neck (Left) 0.690 -1.4 0.2 Osteopenia Total Hip (Left) 0.734 -1.7 -0.3 Osteopenia Femoral Neck (Right) 0.662 -1.7 0.0 Osteopenia Total Hip (Right) 0.713 -1.9 -0.5 Osteopenia Total Hip Mean 0.723 -1.8 -0.4 Osteopenia World Health Organization criteria for BMD impression classify patients as: Normal (T-score at or above -1.0), Osteopenia (T-score between -1.0 and -2.5), or Osteoporosis (T-score at or below -2.5). 10-year Fracture Risk(1): Major Osteoporotic Fracture 16% Hip Fracture 2.1% Reported Risk Factors: [place] (), Neck BMD=0.662, BMI=26.6, previous fracture (1) FRAX(R) Version 3.08. Fracture probability calculated for an untreated patient. Fracture probability may be lower if the patient has received treatment. Clinical Information Provided by Patient: Has had a low trauma fracture Has used the following medications: HRT (i.e. estrogen/hormone therapy) Patient maximum height was 65 Menopause Age: 56 Onset of menses at age 11 Number of children 3 Impression: The patient has low bone mass, based on the Total Spine T-score. The patient has an estimated ten-year risk of hip fracture of 2.1% and an estimated ten-year risk of major fracture of 16%, based on the WHO FRAX algorithm. The patient has risk factors, including: previous fracture. Discussion: BONE DENSITY IS LOW AT ONE OR MORE SKELETAL SITES. This patient's lowest T-score is low at one or more skeletal sites. It meets the World Health Organization's (WHO) criteria for ?low bone mass? (T-score between -1.0 and -2.5). The patient's 10-year risk of fracture as calculated by FRAX is less than the threshold where pharmacological therapy is recommended by the National Osteoporosis Foundation (NOF). However, all treatment decisions require clinical judgment and consideration of individual patient factors, including patient preferences, comorbidities, previous drug use, risk factors not captured in the FRAX model (e.g., frailty, falls, vitamin D deficiency, increased bone turnover, interval significant decline in bone density) and possible under or overestimation of fracture risk by FRAX. The patient should follow a healthful lifestyle (good nutrition with adequate calcium and vitamin D, and appropriate weight-bearing exercise). Follow-Up: Consider repeating this study in 2 to 3 years to reassess this patient's status, or sooner if there is some new clinical indication. Reported by: SARAH on 08/07/2025 12:55:00 PM. Reviewed, dictated and finalized at location A.
== END 2025-08-07 12:25 | disposition home or self-care (01) ==
LOC: MICIMG 12:25
PROVIDERS: PCP Internal Medicine; Visit Provider Internal Medicine
DX: M85.89 Other specified disorders of bone density and structure, multiple sites (principal); Z78.0 Asymptomatic menopausal state
CPT/HCPCS: 77080